=== PATIENT | male | born 1985 | race Caucasian/White ===

== ENCOUNTER 2017-08-12 22:57 | Emergency (ER) | payer SELFPAY ==
[~2017-08-12] VITALS: Ht 162.6 cm; Wt 75.0 kg
[2017-08-12] MEDS ORDERED: RISP1 PO (23:10)
[2017-08-12] MEDS ORDERED: BUPR-93 PO (23:10)
[2017-08-13 03:47] VITALS: BP 119/80
== END 2017-08-13 03:50 | disposition home or self-care (01) ==
LOC: EMS 23:01
DX: M54.2 Cervicalgia (principal); M54.6 Pain in thoracic spine; F12.90 Cannabis use, unspecified, uncomplicated; Z87.891 Personal history of nicotine dependence; V43.52XA Car driver injured in collision with other type car in traffic accident, initial encounter; Y93.89 Activity, other specified; Y92.89 Other specified places as the place of occurrence of the external cause; Y99.8 Other external cause status
CPT/HCPCS: 72125; 99284